=== PATIENT | male | born 1985 | race Caucasian/White ===

== ENCOUNTER 2025-03-03 12:43 | Emergency (ER) | payer OTHER ==
[~2025-03-03] VITALS: Ht 188 cm; Wt 121.4 kg
[2025-03-03 12:45] VITALS: TEMP 97.1
[2025-03-03] MEDS ORDERED: LISI10TA22 (12:58)
[2025-03-03] MEDS ORDERED: BUPR-766 (12:58)
[2025-03-03] MEDS ORDERED: ISOVUE-370 76% 100 ML VIAL As Ordered ONE (15:47)
[2025-03-03] MEDS: ACETAMINOPHEN 500 MG TAB PO ONE (17:18)
[2025-03-03 17:52] VITALS: BP 179/113
[2025-03-03] MEDS: NS (Normal Saline) 0.9% 1,000 ML IV ONE (17:56)
[2025-03-03] MEDS: KETOROLAC 30 MG/ML 1 ML VIAL IV ONE (17:57)
[2025-03-03 18:00] VITALS: O2SAT 96
[2025-03-03 18:41] VITALS: BP 158/112
[2025-03-03] MEDS ORDERED: LISI10TA22 PO (19:40)
== END 2025-03-03 19:48 | disposition left against medical advice (07) ==
LOC: M ED 12:43
DX: R51.9 Headache, unspecified (principal); I10 Essential (primary) hypertension; E78.5 Hyperlipidemia, unspecified; F41.9 Anxiety disorder, unspecified; F32.A Depression, unspecified; F17.210 Nicotine dependence, cigarettes, uncomplicated; Z91.09 Other allergy status, other than to drugs and biological substances; Z79.899 Other long term (current) drug therapy; Z53.9 Procedure and treatment not carried out, unspecified reason
CPT/HCPCS: 70450; 70496; 70498; 80047; 96374; 99284; J1885; J2765; Q9967